=== PATIENT | female | born 1960 | race African-American/Black ===

== ENCOUNTER → 2017-08-20 | Outpatient (CLI) | payer OTHER ==
--- NOTE | 2017-08-20 15:45 | RADIOLOGY REPORT (SQ) ---
EXAM DESCRIPTION: MRI LUMBAR SPINE WITHOUT COMPLETED DATE/TIME: 08/20/2017 11:42 am REASON FOR STUDY: LOW BACK PAIN (M54.5) M25.511 PAIN IN RIGHT SHOULDER M54.5 LOW BACK PAIN COMPARISON: 04/26/2010. TECHNIQUE: Sagittal and Axial imaging includes T1, T2, STIR and gradient echo sequences. Coronal T2/ HASTE imaging. LIMITATIONS: None. FINDINGS: VISUALIZED UPPER ABDOMEN: Limited evaluation. No acute or suspicious findings suggested. SEGMENTATION: No transitional anatomy. The lowest well-developed disc space is labeled L5-S1. ALIGNMENT: Minimal 1-2 mm anterolisthesis of L 4 on L5. VERTEBRAE: Intact. BONE MARROW: No marrow replacement. Reactive endplate signal at L5-S1. DISC SIGNAL: Normal. No significant abnormal signal or loss of height. POSTERIOR ELEMENTS: Generally intact. No pars defect evident. HARDWARE: None in the spine. CORD AND CONUS: Normal in size and signal intensity. Conus at the appropriate level. SOFT TISSUES: No aortic aneurysm seen. No bulky retroperitoneal adenopathy or mass. No paraspinal mas s or fluid. L1-L2: No significant spinal stenosis or exit foraminal stenosis. L2-L3: No significant spinal stenosis or exit foraminal stenosis. L3-L4: Minimal diffuse posterior annular bulge. Mild facet arthropathy. No significant spinal steno sis or exit foraminal stenosis. L4-L5: Mild central disc bulge. This indents the thecal sac with no nerve root impingement. Moderat e facet arthropathy. No spinal stenosis or exit foraminal stenosis. L5-S1: Mild asymmetric left lateral disc bulge. Mild impingement of left S1 nerve root and left exit foraminal stenosis. Moderate facet arthropathy. No significant spinal stenosis or right exit tracee inal stenosis. LOWER THORACIC: Incompletely imaged. No stenosis seen. SACRUM: Visualized upper sacrum intact. OTHER: No other significant findings. IMPRESSION: CHRONIC DEGENERATIVE FINDINGS ABOVE. NO ACUTE FINDINGS. TECHNICAL DOCUMENTATION: JOB ID: [id number] [employer]- All Rights Reserved
--- NOTE | 2017-08-20 16:53 | RADIOLOGY REPORT (SQ) ---
EXAM DESCRIPTION: MRI RT UPPER JOINT WITHOUT COMPLETED DATE/TIME: 08/20/2017 11:42 am REASON FOR STUDY: PAIN IN RIGHT SHOULDER (M25.511), PAIN IN LEFT SHOULDER (M25.512) M25.511 PAIN IN RIGHT SHOULDER M54.5 LOW BACK PAIN COMPARISON: None. TECHNIQUE: Right shoulder images acquired and stored on PACS. Multiplanar imaging to include fat sen sitive sequences such as T1, water sensitive sequences such as FST2/STIR, cartilage sensitive sequenc es such as FSPD/gradient-echo sequences. LIMITATIONS: Susceptibility artifact. FINDINGS: BONE MARROW AND CORTEX: Artifact associated with anchoring screw in the humeral head. JOINT OR BURSAL EFFUSION: No significant joint or bursal fluid. No suggestion of loose bodies. GLENO-HUMERAL ARTICULATION: Intact. ACROMION AND AC JOINT: Prior acromioplasty and Faith procedure. ROTATOR CUFF AND INTERVAL: Diffuse tendinopathy. No significant tear identified. Small amount of fl uid along the articular surface of the infraspinatus. No rotator interval tear. No rotator interval thickening to suggest adhesive capsulitis. LABRUM AND BICEPS LABRAL COMPLEX: Intact. No labral tear. Intra-articular long-head biceps tendon n ormal. Distal biceps in normal location in bicipital groove. REMAINDER OF LABRUM AND IGHL : No gross tear or paralabral cyst formation. Labral evaluation is less than optimal without joint distention. No thickening of IGHL to suggest adhesive capsulitis. PERIARTICULAR AND ADJACENT SOFT TISSUES: No masses or abnormal nodes. OTHER: No other significant finding. IMPRESSION: 1. Tendinopathy and peritendinitis. No evidence of recurrent cuff tear. TECHNICAL DOCUMENTATION: JOB ID: [id number] [employer]- All Rights Reserved
== END ==
LOC: RAD 10:05
PROVIDERS: ATTEND Family Medicine
DX: M25.511 Pain in right shoulder (principal); M25.512 Pain in left shoulder; M54.5 Low back pain; M47.896 Other spondylosis, lumbar region
CPT/HCPCS: 72148

== ENCOUNTER → 2018-08-07 | Day surgery (SDC) | payer MEDICARE, OTHER ==
[~2018-08-07] MED LIST: BUPIVACAINE HCL 0.5 % INJ/PF 30 ML SDV ONE
--- NOTE | 2018-08-07 11:10 | Operative Report ---
PREOPERATIVE DIAGNOSIS: Spondylolisis without myopathy or radiculopathy M47.818// Lumbar Sacral Spondylolisis without myopathy or radiculopathy M47.817 POSTOPERATIVE DIAGNOSIS:Spondylolisis without myopathy or radiculopathy M47.818// Lumbar Sacral Spondylolisis without myopathy or radiculopathy M47.817 PROCEDURE: 1. Radiofrequency Ablation of bilateral L5 dorsal Ramus 2. Sacroiliac Joint Ablation - Lateral Branches of bilateral S1, S2, S3 DATE OF PROCEDURE: 07 Aug 2018 ANESTHESIA: Local COMPLICATIONS: None CONSENT: A full description of the procedure was provided including benefits as well as possible complications. All questions were answered and informed consent was given and signed. ASA guidelines for fasting were verified prior to sedati on. PROCEDURE IN DETAIL The patient was brought into the fluoroscopy suite and carefully assisted into the prone position on the fluoroscopy table and allowed to adjust to a position of comfort. A grounding pad was placed on the right thigh. The low back and buttocks were widely prepped with a chloraprep solution, allowed to air dry and draped in standard sterile surgical fashion. Local anesthesia was provided by 12 mL of 1 % lidocaine delivered with a 25 g needle. PROCEDURE #1: Radiofrequency Ablation of Dorsal Ramus of bilateral L5. A 17g 75 mm radiofrequency introducer needle was placed to the planned anatomic target, guided with intermittent fluoroscopy with a perpendicular approach, to terminally place at the bilateral sacral ala. The stylets were removed and the radiofrequency probes with a 4mm active tip were then inserted. Needle tip position of the probes were verified in the AP, oblique, and lateral views. At each site, the medial branch nerve was stimulated at 2Hz to a maximum of 1- 2volts determined to finalize safe needle and electrode placement. The patient was awake and responsive during this portion of the procedure. Each target was anesthetized with 2mL of 2 % Sensorcaine anesthesia for lesioning and then each target was lesioned at 80 degrees Celsius for 2 minutes and 30 seconds. Tissue impedences were noted to be between 250 and 500 Ohms. PROCEDURE #2: Radiofrequency Ablation of bilateral S1, S2, S3 Lateral Branches Using the AP fluoroscopic view for visualization of the lateral PSFA as defined by the pre-placed 27-gauge Quincke needles, appropriate skin starting positions were defined. Using the PSFA as a "clock-face", the positions were: S1; bilateral = 1 and 5 oclock S2; bilateral = 1 and 5 oclock S3; bilateral = 3 oclock Using fluoroscopic guidance, a 17g introducer needle was inserted sequentially onto the target positions described above until the introducer tip touched the bony surface of the sacrum. The stylet was withdrawn from the introducer and the radiofrequency probe with a 4 mm active tip was fully inserted into the introducer. A lateral view was obtained for standard reference. At each of the targets, needle placement was verified with the use of multi-planar fluoroscopy. The needle tip position was approximately 7 - 10mm lateral to the PSFA as determined by using an Epsilon ruler. At each site, the lateral branch nerve was stimulated at 2 Hz to a maximum of 1- 2 volts determined to finalize safe needle and electrode placement. The patient was awake and responsive during this portion of the procedure. Each target was a nesthetized with 2 mL of 2 % Sensorcaine anesthesia for lesioning and then each target was lesioned at 80 degrees Celsius for 2 minutes and 30 seconds. Tissue impedences were noted to be between 250- 500 Ohms. At the conclusion of the lesioning the needles were removed and bandages placed over the needle placement sites and the patient returned to the supine position on a stretcher and transported to the recovery room without hemodynamic, neurologic, or allergic reactions. Fluoroscopic images were printed for hard copy recording and digitally archived. FLUOROSCOPIC INTERPRETATION: Appropriate epidurogram obtained. Appropriate lesioning of the 10 targets noted. POST PROCEDURE EVALUATION: The patient was comfortable in the recovery room. The patient is aware that pain may worsen before remitting and 4 6 weeks may be required prior to the onset of pain relief. IMPRESSION: 1. Technically successful sacral lateral branch, lumbar dorsal ramus for denervation from L5-S3 on the bilateral without complication. 2. RTC in 2 weeks. 3. Estimated Blood Loss: None 4. Fluoroscopy time: 30 seconds
== END ==
LOC: RAD 10:48
PROVIDERS: ATTEND Family Medicine
DX: M47.818 Spondylosis without myelopathy or radiculopathy, sacral and sacrococcygeal region (principal); M47.817 Spondylosis without myelopathy or radiculopathy, lumbosacral region
CPT/HCPCS: 64635; 64640 ×3; J3490

== ENCOUNTER → 2020-07-22 | Outpatient (CLI) | payer MEDICARE, OTHER ==
--- NOTE | 2020-07-22 10:39 | WOMENS IMAGING REPORT ---
EXAM DESCRIPTION: BONE DENSITY HIP/SPINE IMAGES COMPLETED DATE/TIME: 07/22/2020 10:04 am REASON FOR STUDY: M81.0 M81.0 AGE-RELATED OSTEOPOROSIS W/O CURRENT PATHOLOGICAL FRAC COMPARISON: None. TECHNIQUE: Dual-Energy X-ray Absorptiometry (DEXA) of the AP Spine and Hip. LIMITATIONS: None. FINDINGS: LUMBAR SPINE: The bone mineral density (BMD) measured from L1, L2 and L4 in the AP projection correlates with a T-s core of -1.2, which is osteopenia as defined by the World Health Organization. L3 was excluded due t o overlying hardware. BMD Change vs Baseline: N/A HIP: The bone mineral density (BMD) measured in the left hip correlates with a T-score of -0.4, which is n ormal as defined by the World Health Organization. BMD Change vs Baseline: N/A 10 year Fracture Risk Assessment: Major Osteoporotic Fracture: Not available. Hip Fracture: Not available. IMPRESSION: 1. LUMBAR SPINE WHO CLASSIFICATION: OSTEOPENIA. 2. HIP WHO CLASSIFICATION: NORMAL. OVERALL ASSESSMENT: WHO CLASSIFICATION: OSTEOPENIA. COMMENT: The World Health Organization defines low BMD as follows: T-score: Normal: At or above -1.0 Osteopenia: Between -1.0 and -2.5 Osteoporosis: At or below -2.5 without fractures Established osteoporosis: At or below -2.5 with fractures In general, you may wish to consider: Diagnosis Treatment Follow-up DEXA Normal BMD Prevention 2-3 years Osteopenia Prevention/Therapy 1-2 years Osteoporosis Therapy Yearly TECHNICAL DOCUMENTATION: JOB ID: [id number] 2010 [employer]- All Rights Reserved Reading location - IP/workstation name: [email or web address]
== END ==
LOC: WI 11:33
PROVIDERS: ATTEND Physician Assistant Medical
DX: M81.0 Age-related osteoporosis without current pathological fracture (principal)
CPT/HCPCS: 77080